=== PATIENT | male | born 2000 | race Native Hawaiian/Other Pacific Islander ===

== ENCOUNTER 2018-12-20 10:54 | Emergency (ER) | payer OTHER ==
[~2018-12-20] VITALS: Ht 180.3 cm; Wt 63.0 kg
[2018-12-20 12:13] VITALS: BP 136/67; TEMP 100
== END 2018-12-20 12:13 | disposition home or self-care (01) ==
LOC: ED 10:54
DX: J01.90 Acute sinusitis, unspecified (principal); R42 Dizziness and giddiness
CPT/HCPCS: 93005; 99282